=== PATIENT | female | born 1980 | race Caucasian/White ===

== ENCOUNTER 2016-08-11 00:16 | Observation (INO) | payer OTHER ==
[~2016-08-11] VITALS: Ht 170.2 cm; Wt 142.6 kg
[~2016-08-11 00:16] MED LIST: ALBUTEROL SULF8.5 GM IH; ASPIRIN325 MG PO; BUPROPION HCL150 M2 PO; COUMADIN10 MG PO; COUMADIN5 MG PO; HYDROCODON-ACE1 EAC7 PO; KEFLEX500 MG PO; LEVAQUIN750 MG PO; LEVOFLOXACIN500 MG PO; LEXAPRO20 MG PO; LOVENOX60 MG/0.6 SC; MOBIC7.5 MG PO; NAPROSYN500 MG PO; NO MEDS; NORCO 5/3251 TABLET PO; PERCOCET 5/31 TABLET PO; PREDNISONE20 MG PO; PREDNISONE50 MG PO; ROBITUSSIN AC,T10 ML PO; SKELAXIN800 MG PO; TYLENOL EXTRA500 MG PO; VICODIN 5-3001 EACH PO; XARELTO15 MG PO; ZOFRAN4 MG PO
[2016-08-11 00:45] LABS: HEMATOCRIT 46.7 % (36.0-46.0); MCH 31.3 PG (29.0-34.0); MCHC 34.5 G/DL (30.0-36.0); MCV 90.9 FL (83-99); MEAN PLAT.VOLUME 10.7 uM^3 (9.5-12.4); PLATELET COUNT 275 K/uL (156-360); RBC DIS.WIDTH-CV 13.8 % (11.8-14.6); RBC DIS.WIDTH-SD 45.1 % (39-53); RED BLOOD COUNT 5.14 M/uL (3.80-5.20); WHITE BLOOD COUNT 10.2 K/uL (4.1-10.2)
[2016-08-11 00:56] LABS: CHLORIDE 106 mEq/L (99-109); SODIUM 142 mEq/L (136-147)
[2016-08-11 00:58] LABS: GLUCOSE 72 mg/dL (70-99)
[2016-08-11 00:59] LABS: ANION GAP 11 MEQ/L (2-14)
[2016-08-11 01:02] LABS: GFR ESTIMATE (CALCULATED) > 59 mL/min/
[2016-08-11 01:03] LABS: UREA NITROGEN (BUN) 14 mg/dL (9-23)
[2016-08-11 01:08] LABS: TROP-I INTERPRETATION NEGATIVE; TROPONIN-I < 0.01 ng/mL (0.0-0.30)
[2016-08-11] MEDS ORDERED: METFORMIN HCL750 MG PO (01:35)
[2016-08-11] MEDS ORDERED: SPIRONOLACTONE50 MG PO (01:35)
[2016-08-11] MEDS ORDERED: ADVAIR 250/501 DISK IH (01:35)
[2016-08-11] MEDS ORDERED: VENTOLIN HFA18 GM IH (01:36)
[2016-08-11 07:11] LABS: POINT-OF-CARE METER ID UU13113747
[2016-08-11 08:37] LABS: TROP-I INTERPRETATION NEGATIVE; TROPONIN-I < 0.01 ng/mL (0.0-0.30)
[2016-08-11 10:06] LABS: HEMATOCRIT 44.4 % (36.0-46.0); MCH 31.5 PG (29.0-34.0); MCHC 34.9 G/DL (30.0-36.0); MCV 90.2 FL (83-99); MEAN PLAT.VOLUME 10.7 uM^3 (9.5-12.4); PLATELET COUNT 265 K/uL (156-360); RBC DIS.WIDTH-CV 13.7 % (11.8-14.6); RBC DIS.WIDTH-SD 44.8 % (39-53); RED BLOOD COUNT 4.92 M/uL (3.80-5.20); WHITE BLOOD COUNT 9.2 K/uL (4.1-10.2)
[2016-08-11 10:18] LABS: CHLORIDE 108 mEq/L (99-109); POTASSIUM 4.1 mEq/L (3.7-5.4); SODIUM 139 mEq/L (136-147)
[2016-08-11 10:22] LABS: ANION GAP 10 MEQ/L (2-14); GLUCOSE 106 mg/dL (70-99); TOTAL BILIRUBIN 0.6 mg/dL (0.0-1.0)
[2016-08-11 10:24] LABS: ALKALINE PHOSPHATASE 41 IU/L (3-129); GFR ESTIMATE (CALCULATED) > 59 mL/min/
[2016-08-11 10:25] LABS: UREA NITROGEN (BUN) 15 mg/dL (9-23)
[2016-08-11 11:01] LABS: POINT-OF-CARE METER ID UU13113831
[2016-08-11 12:42] VITALS: BP 122/74
[2016-08-11 14:44] LABS: TROP-I INTERPRETATION NEGATIVE; TROPONIN-I < 0.01 ng/mL (0.0-0.30)
== END 2016-08-11 15:40 | disposition home or self-care (01) ==
LOC: EME 00:16 → EDOF 04:30 → 5WEST 10:22
PROVIDERS: Hospitalist; Internal Medicine
DX: R07.89 Other chest pain (principal); I45.10 Unspecified right bundle-branch block; I10 Essential (primary) hypertension; J44.9 Chronic obstructive pulmonary disease, unspecified; I27.2 Other secondary pulmonary hypertension; M79.622 Pain in left upper arm; F32.9 Major depressive disorder, single episode, unspecified; E78.5 Hyperlipidemia, unspecified; J45.909 Unspecified asthma, uncomplicated; G47.33 Obstructive sleep apnea (adult) (pediatric); F17.200 Nicotine dependence, unspecified, uncomplicated; E66.01 Morbid (severe) obesity due to excess calories; Z68.42 Body mass index [BMI] 45.0-49.9, adult
CPT/HCPCS: 71020; 80048; 80053; 82948; 84484; 85027; 93005; 94640; 94760; 99202; 99281; 99285; G0378; J1644; J1815; J7030

== ENCOUNTER 2016-09-08 09:58 | Day surgery (SDC) | payer OTHER ==
[~2016-09-08] VITALS: Ht 170.2 cm; Wt 141.0 kg
[~2016-09-08 09:58] MED LIST changes: +ADVAIR 250/501 DISK IH; +LO-DOSE ASPIRIN81 M2 PO; +METFORMIN HCL750 MG PO; +SPIRONOLACTONE50 MG PO; +VENTOLIN HFA18 GM IH
[2016-09-08 10:34] LABS: POINT-OF-CARE METER ID UU13113696
== END 2016-09-08 17:34 | disposition home or self-care (01) ==
LOC: CATH 09:58
PROVIDERS: Internal Medicine Cardiovascular Disease
DX: Q21.1 Atrial septal defect (principal); I10 Essential (primary) hypertension; E11.9 Type 2 diabetes mellitus without complications; E66.01 Morbid (severe) obesity due to excess calories; Z68.41 Body mass index [BMI] 40.0-44.9, adult
CPT/HCPCS: 82948; C1769; C1887; J1644; J2250; J3010

== ENCOUNTER 2016-10-25 01:31 | Emergency (ER) | payer OTHER ==
[~2016-10-25] VITALS: Ht 170.2 cm; Wt 142.8 kg
[2016-10-25 02:25] LABS: HEMATOCRIT 37.5 % (36.0-46.0); MCH 31.4 PG (29.0-34.0); MCHC 34.1 G/DL (30.0-36.0); MCV 92.1 FL (83-99); PLATELET COUNT 391 K/uL (156-360); RBC DIS.WIDTH-CV 13.2 % (11.8-14.6); RBC DIS.WIDTH-SD 44.9 % (39-53); RED BLOOD COUNT 4.07 M/uL (3.80-5.20); WHITE BLOOD COUNT 10.1 K/uL (4.1-10.2)
[2016-10-25 04:18] VITALS: BP 114/67
== END 2016-10-25 04:19 | disposition home or self-care (01) ==
LOC: EME 01:31
PROVIDERS: Emergency Medicine
DX: R60.0 Localized edema (principal); Z98.890 Other specified postprocedural states; Z87.74 Personal history of (corrected) congenital malformations of heart and circulatory system; E11.9 Type 2 diabetes mellitus without complications; J44.9 Chronic obstructive pulmonary disease, unspecified; J45.909 Unspecified asthma, uncomplicated; Z86.718 Personal history of other venous thrombosis and embolism; Z79.82 Long term (current) use of aspirin; Z87.891 Personal history of nicotine dependence
CPT/HCPCS: 71020; 83880; 85027; 93005; 93971; 99281; 99284

== ENCOUNTER 2017-10-15 17:37 | Emergency (ER) | payer OTHER ==
[~2017-10-15] VITALS: Ht 170.2 cm; Wt 150.2 kg
[2017-10-15 18:11] LABS: HEMATOCRIT 41.4 % (36.0-46.0); HEMOGLOBIN 14.2 G/DL (11.9-15.5); MCH 31.6 PG (29.0-34.0); MCHC 34.3 G/DL (30.0-36.0); PLATELET COUNT 285 K/uL (156-360); RBC DIS.WIDTH-CV 13.4 % (11.8-14.6); RBC DIS.WIDTH-SD 45.9 % (39-53); WHITE BLOOD COUNT 7.7 K/uL (4.1-10.2)
[2017-10-15 18:22] LABS: CHLORIDE 107 mEq/L (99-109); POTASSIUM 3.8 mEq/L (3.7-5.4); SODIUM 139 mEq/L (136-147)
[2017-10-15 18:24] LABS: GLUCOSE 99 mg/dL (70-99)
[2017-10-15 18:28] LABS: GFR ESTIMATE (CALCULATED) > 59 mL/min/
[2017-10-15 18:29] LABS: UREA NITROGEN (BUN) 11 mg/dL (9-23)
[2017-10-15] MEDS ORDERED: ZITHROMAX250 MG PO (19:47)
[2017-10-15] MEDS ORDERED: PROAIR HFA8.5 GM IH (19:47)
[2017-10-15] MEDS ORDERED: DELTASONE20 M1 PO (19:47)
[2017-10-15 20:23] VITALS: BP 129/94
== END 2017-10-15 20:24 | disposition home or self-care (01) ==
LOC: EME 17:37
DX: J44.0 Chronic obstructive pulmonary disease with (acute) lower respiratory infection (principal); J20.9 Acute bronchitis, unspecified; E11.9 Type 2 diabetes mellitus without complications; G47.30 Sleep apnea, unspecified; R56.9 Unspecified convulsions; Z79.84 Long term (current) use of oral hypoglycemic drugs; Z79.82 Long term (current) use of aspirin; Z79.51 Long term (current) use of inhaled steroids; Z86.718 Personal history of other venous thrombosis and embolism; Z87.891 Personal history of nicotine dependence; Z86.79 Personal history of other diseases of the circulatory system; Z98.51 Tubal ligation status
CPT/HCPCS: 71046; 80048; 85027; 94640; 94760; 99281; 99283; J7512

== ENCOUNTER 2017-10-18 12:30 | Emergency (ER) | payer OTHER ==
[~2017-10-18] VITALS: Ht 170.2 cm; Wt 148.7 kg
[~2017-10-18 12:30] MED LIST changes: +DELTASONE20 M1 PO; +PROAIR HFA8.5 GM IH; +ZITHROMAX250 MG PO
[2017-10-18 13:34] LABS: HEMATOCRIT 43.6 % (36.0-46.0); MCH 31.6 PG (29.0-34.0); MCHC 34.4 G/DL (30.0-36.0); MCV 91.8 FL (83-99); PLATELET COUNT 317 K/uL (156-360); RBC DIS.WIDTH-CV 13.7 % (11.8-14.6); RBC DIS.WIDTH-SD 46.5 % (39-53); RED BLOOD COUNT 4.75 M/uL (3.80-5.20); WHITE BLOOD COUNT 8.7 K/uL (4.1-10.2)
[2017-10-18 13:43] LABS: PTT 26.9 SEC (25-37)
[2017-10-18 13:46] LABS: CHLORIDE 104 mEq/L (99-109); POTASSIUM 3.7 mEq/L (3.7-5.4); SODIUM 139 mEq/L (136-147)
[2017-10-18 13:47] LABS: GLUCOSE 92 mg/dL (70-99)
[2017-10-18 13:51] LABS: CREATININE 0.9 mg/dL (0.6-1.3); GFR ESTIMATE (CALCULATED) > 59 mL/min/
[2017-10-18 13:52] LABS: UREA NITROGEN (BUN) 13 mg/dL (9-23)
[2017-10-18 13:59] LABS: QUANTITATIVE HCG < 4.0 MIU/ML
[2017-10-18] MEDS ORDERED: DUONEB 2.5-0.5 M3 ML AEROSOL (16:20)
[2017-10-18] MEDS ORDERED: LEVAQUIN750 MG PO (16:20)
[2017-10-18 17:01] VITALS: BP 143/101
== END 2017-10-18 17:02 | disposition home or self-care (01) ==
LOC: EME 12:30
PROVIDERS: Nurse Practitioner Family
DX: J18.9 Pneumonia, unspecified organism (principal); F17.200 Nicotine dependence, unspecified, uncomplicated; R00.0 Tachycardia, unspecified; I49.3 Ventricular premature depolarization; R94.31 Abnormal electrocardiogram [ECG] [EKG]; E11.9 Type 2 diabetes mellitus without complications; G47.30 Sleep apnea, unspecified; Z91.14 Patient's other noncompliance with medication regimen; Z79.51 Long term (current) use of inhaled steroids; Z79.82 Long term (current) use of aspirin; Z79.84 Long term (current) use of oral hypoglycemic drugs; Z86.718 Personal history of other venous thrombosis and embolism; Z86.79 Personal history of other diseases of the circulatory system; Z98.51 Tubal ligation status; Z98.890 Other specified postprocedural states
CPT/HCPCS: 71046; 71275; 80048; 83880; 84702; 85027; 85610; 85730; 93005; 94640; 99281; 99284

== ENCOUNTER 2017-11-14 22:20 | Emergency (ER) | payer OTHER ==
[~2017-11-14] VITALS: Ht 170.2 cm; Wt 149.5 kg
[~2017-11-14 22:20] MED LIST changes: +DUONEB 2.5-0.5 M3 ML AEROSOL
[2017-11-14 22:51] LABS: HEMATOCRIT 39.9 % (36.0-46.0); HEMOGLOBIN 13.9 G/DL (11.9-15.5); MCH 32.1 PG (29.0-34.0); MCHC 34.8 G/DL (30.0-36.0); MCV 92.1 FL (83-99); PLATELET COUNT 300 K/uL (156-360); RBC DIS.WIDTH-CV 13.5 % (11.8-14.6); RBC DIS.WIDTH-SD 46.1 % (39-53); RED BLOOD COUNT 4.33 M/uL (3.80-5.20); WHITE BLOOD COUNT 12.4 K/uL (4.1-10.2)
[2017-11-14 23:14] LABS: CHLORIDE 107 mEq/L (99-109); POTASSIUM 3.6 mEq/L (3.7-5.4); SODIUM 142 mEq/L (136-147)
[2017-11-14 23:16] LABS: GLUCOSE 115 mg/dL (70-99)
[2017-11-14 23:18] LABS: TROP-I INTERPRETATION NEGATIVE; TROPONIN-I < 0.01 ng/mL (0.0-0.30)
[2017-11-14 23:20] LABS: CREATININE 0.8 mg/dL (0.6-1.3); GFR ESTIMATE (CALCULATED) > 59 mL/min/
[2017-11-14 23:21] LABS: UREA NITROGEN (BUN) 10 mg/dL (9-23)
[2017-11-15 00:43] LABS: TROP-I INTERPRETATION NEGATIVE; TROPONIN-I 0.01 ng/mL (0.0-0.30)
[2017-11-15 01:02] VITALS: BP 109/71
== END 2017-11-15 01:05 | disposition home or self-care (01) ==
LOC: EME → EDBD 22:20 → EME 11-15 01:05
PROVIDERS: Emergency Medicine
DX: R07.89 Other chest pain (principal); I49.3 Ventricular premature depolarization; I45.10 Unspecified right bundle-branch block; R94.31 Abnormal electrocardiogram [ECG] [EKG]; E11.9 Type 2 diabetes mellitus without complications; G47.30 Sleep apnea, unspecified; I51.7 Cardiomegaly; F17.200 Nicotine dependence, unspecified, uncomplicated; Z79.51 Long term (current) use of inhaled steroids; Z79.82 Long term (current) use of aspirin; Z79.84 Long term (current) use of oral hypoglycemic drugs; Z98.890 Other specified postprocedural states; Z91.14 Patient's other noncompliance with medication regimen; Z87.74 Personal history of (corrected) congenital malformations of heart and circulatory system; Z86.69 Personal history of other diseases of the nervous system and sense organs; Z86.718 Personal history of other venous thrombosis and embolism; Z98.51 Tubal ligation status
CPT/HCPCS: 71046; 80048; 84484; 85027; 93005; 99281; 99285